=== PATIENT | female | born 1985 | race Caucasian/White ===

== ENCOUNTER 2016-03-10 16:28 | Emergency (ER) | payer MEDICAID ==
[2016-03-10] MEDS ORDERED: 0.9 % SODIUM CHLORIDE 1,000 ML BAG IV ONE (17:56)
[2016-03-10] MEDS ORDERED: ONDANSETRON HCL IV 4 MG/2 ML VIAL IVP ONE (17:57)
[2016-03-10 18:21] LABS: URINE APPEARANCE SL CLOUDY; URINE BILIRUBIN NEGATIVE (NEGATIVE); URINE BLOOD NEGATIVE (NEGATIVE); URINE COLOR YELLOW; URINE KETONE 40 mg/dL (NEGATIVE); URINE LEUKOCYTE ESTERASE NEGATIVE (NEGATIVE); URINE NITRITE NEGATIVE (NEGATIVE); URINE PROTEIN NEGATIVE (NEGATIVE); URINE UROBILINOGEN 0.2 E.U./dL (0.20 - 1.00)
[2016-03-10 18:23] LABS: URINE GLUCOSE (UA) >=1000 mg/dL (NEGATIVE)
[2016-03-10 18:25] LABS: HEMATOCRIT 39.8 % (35.0-47.0); HEMOGLOBIN 13.7 gm/dl (11.6-16.0); MEAN CELL VOLUME 88.2 fl (81-97); MEAN CORPUSCULAR HEMOGLOBIN 30.4 pg (27-33); MEAN CORPUSCULAR HGB CONC 34.4 g/dl (32-36); MEAN PLATELET VOLUME 10.6 fl (7.4-10.4); PLATELET COUNT 315 K/uL (130-400); RED BLOOD COUNT 4.51 M/uL (3.80-5.40); RED CELL DISTRIBUTION WIDTH 12.9 % (11.5-14.5); WHITE BLOOD COUNT W/O DIFF 15.6 K/uL (4.2-12.2)
[2016-03-10 18:34] LABS: ANION GAP 18.2 (7-16); BLOOD UREA NITROGEN 16 mg/dL (7-17); CARBON DIOXIDE 23.8 mmol/L (22-30); CREATININE 0.8 mg/dL (0.52-1.04); EST GLOMERULAR FILTRATION RATE > 60 ml/min; GLUCOSE,RANDOM 437 mg/dL (70-110)
[2016-03-10 18:39] LABS: ACETONE,SERUM POSITIVE (NEGATIVE)
--- NOTE | 2016-03-10 19:55 | Emergency Department Record ---
History of Present Illness - General Chief complaint: Hypergylcemia Stated complaint: DIABETIC AND SUGAR IS HIGH Time Seen by Provider: 03/10/16 17:15 Source: Patient Mode of Arrival: Ambulatory Limitations: No limitations - History of Present Illness Initial comments: pt ran out of her needles so she has a high blood sugar. she was given needles when she got here and injected her insulin prior to me going into the room Complaint: Generalized weakness Onset/Timin -: Days(s) Severity: Mild Improves with: Medication Associated Symptoms: Nausea/vomiting - Jorge A Coma Scale Eye Response: (4) Open spontaneously Motor Response: (6) Obeys commands Verbal Response: (5) Oriented [place] Total: 15 - Related Data Home Medications Medication Instructions Recorded Confirmed Last Taken Insulin Aspart [Novolog] 40 units SQ DAILY 09/21/13 03/10/16 03/10/16 Levothyroxine Sodium 100 mcg PO DAILY 09/21/13 03/10/16 03/10/16 Allergies Allergy/AdvReac Type Severity Reaction Status Date / Time ceftriaxone sodium Allergy HIVES Verified 03/10/16 16:45 [From Rocephin] fluconazole [From Diflucan] Allergy HIVES Verified 03/10/16 16:45 metronidazole [From Flagyl] Allergy HIVES Verified 03/10/16 16:45 Penicillins Allergy HIVES Verified 03/10/16 16:45 Travel Screening - Travel/Exposure Within Last 30 Days Have you traveled within the last 30 days?: No - Travel/Exposure Within Last Year Have you traveled outside the [place] in the last year?: No - Additonal Travel Details Have you been exposed to anyone with a communicable illness?: No - Travel Symptoms Symptom Screening: None Review of Systems Reviewed: No additional complaints except as noted below Constitutional: Reports: As per HPI. Denies: Chills, Fever, Malaise, Night sweats, Weakness, Weight change Eyes: Reports: As per HPI. Denies: Eye discharge, Eye pain, Photophobia, Vision change ENT: Reports: As per HPI. Denies: Congestion, Dental pain, Ear pain, Epistaxis , Hearing loss, Throat pain Respiratory: Reports: As per HPI. Denies: Cough, Dyspnea, Hemoptysis, Stridor, Wheezes Cardiovascular: Reports: As per HPI. Denies: Arrhythmia, Chest pain, Dyspnea on exertion, Edema, Murmurs, Orthopnea, Palpitations, Paroxysmal nocturnal dyspnea, Rheumatic Fever, Syncope Endocrine: Reports: As per HPI. Denies: Fatigue, Heat or cold intolerance, Polydipsia, Polyuria Gastrointestinal: Reports: As per HPI. Denies: Abdominal pain, Constipation, Diarrhea, Hematemesis, Hematochezia, Melena, Nausea, Vomiting Genitourinary: Reports: As per HPI. Denies: Abnormal menses, Discharge, Dyspareunia, Dysuria, Frequency, Hematuria, Incontinence, Retention, Urgency Musculoskeletal: Reports: As per HPI. Denies: Arthralgia, Back pain, Gout, Joint swelling, Myalgia, Neck pain Skin: Reports: As per HPI. Denies: Bruising, Change in color, Change in hair/ nails, Lesions, Pruritus, Rash Neurological: Reports: As per HPI. Denies: Abnormal gait, Confusion, Headache, Numbness, Paresthesias, Seizure, Tingling, Tremors, Vertigo, Weakness Psychiatric: Reports: As per HPI. Denies: Anxiety, Auditory hallucinations, Depression, Homicidal thoughts, Suicidal thoughts, Visual hallucinations Hematological/Lymphatic: Reports: As per HPI. Denies: Anemia, Blood Clots, Easy bleeding, Easy bruising, Swollen glands Past Medical History - SOCIAL HISTORY Smoking Status: Current every day smoker Alcohol Use: None Drug Use: None - RESPIRATORY Hx Respiratory Disorders: Yes Hx Asthma: Yes - CARDIOVASCULAR Hx Cardio Disorders: Yes Hx Hypotension: Yes - NEURO Hx Neuro Disorders: Yes Hx Headaches: Yes (hx of migraines) - GI Hx GI Disorders: No - Hx Genitourinary Disorders: No - ENDOCRINE Hx Endocrine Disorders: Yes Hx Diabetes: Yes Hx Thyroid Disease: Yes - MUSCULOSKELETAL Hx Musculoskeletal Disorders: No - PSYCH Hx Psych Problems: No - HEMATOLOGY/ONCOLOGY Hx Hematology/Oncology Disorders: No Family Medical History Any Significant Family History?: Yes Hx Cancer: Grandparents Hx Liver Disease: Mother, Brother/Sister Hx Resp Disorders: Father Physical Exam - General General Appearance: Alert, Oriented x3, Cooperative, Mild distress - Head Head exam: Normal inspection - Eye Eye exam: Normal appearance, PERRL, EOMI Pupils: Normal accommodation - ENT ENT exam: Normal exam, Mucous membranes moist, Normal external ear exam, Normal orophraynx Ear exam: Normal external inspection. negative: External canal tenderness Nasal Exam: Normal inspection. negative: Discharge, Sinus tenderness Mouth exam: Normal external inspection, Tongue normal Teeth exam: Normal inspection. negative: Dental caries Throat exam: Normal inspection. negative: Tonsillar erythema, Tonsillar exudate - Neck Neck exam: Normal inspection, Full ROM. negative: Tenderness - Respiratory Respiratory exam: Normal lung sounds bilaterally. negative: Respiratory distress - Cardiovascular Cardiovascular Exam: Regular rate, Normal rhythm, Normal heart sounds - GI/Abdominal GI/Abdominal exam: Soft, Normal bowel sounds. negative: Tenderness - Rectal Rectal exam: Deferred - exam: Deferred - Extremities Extremities exam: Normal inspection, Full ROM, Normal capillary refill. negative: Tenderness - Back Back exam: Reports: Normal inspection, Full ROM. Denies: Muscle spasm, Rash noted, Tenderness - Neurological Neurological exam: Alert, CN II-XII intact, Normal gait, Oriented X3 - Psychiatric Psychiatric exam: Normal affect, Normal mood - Skin Skin exam: Dry, Intact, Normal color, Warm Course Vital Signs 03/10/16 03/10/16 03/10/16 16:47 17:05 17:15 Temperature 98 F Pulse Rate 67 Pulse Rate [ 65 56 L Pulse Ox Probe] Respiratory 20 16 16 Rate Blood Pressure 112/63 Blood Pressure 120/58 113/69 [Left Arm] Pulse Ox 97 98 98 03/10/16 03/10/16 03/10/16 17:25 17:35 17:46 Temperature Pulse Rate Pulse Rate [ 53 L 54 L 81 Pulse Ox Probe] Respiratory 16 16 20 Rate Blood Pressure Blood Pressure 112/61 109/64 100/54 [Left Arm] Pulse Ox 98 98 98 03/10/16 03/10/16 18:00 18:10 Temperature Pulse Rate Pulse Rate [ 66 90 Pulse Ox Probe] Respiratory 16 16 Rate Blood Pressure Blood Pressure 109/60 117/66 [Left Arm] Pulse Ox 98 98 - Reevaluation(s) Reevaluation #1: 03/10/16 19:54 pts bs came down with the insulin that she gave herself and the iv fluids and the insulin pump she has Reevaluation #2: 03/10/16 19:58 pt states she does not want to be admitted and feels much better. she is willing to stay to finish her 2nd ltr of fluid and then will leave Medical Decision Making - Lab Data Result diagrams: 03/10/16 18:17 03/10/16 18:17 Lab Results 0103/10/16 03/10/16 Range/Units 16:45 18:17 18:17 WBC 15.6 H (4.2-12.2) K/uL RBC 4.51 (3.80-5.40) M/uL Hgb 13.7 (11.6-16.0) gm/dl Hct 39.8 (35.0-47.0) % MCV 88.2 (81-97) fl MCH 30.4 (27-33) pg MCHC 34.4 (32-36) g/dl RDW 12.9 (11.5-14.5) % Plt Count 315 (130-400) K/uL MPV 10.6 H (7.4-10.4) fl Neutrophils % 82.0 H (47-80) % Band Neutrophils % 0.0 (0-5) % Lymphocytes % 12.0 L (16-45) % Monocytes % 6.0 (0-9) % Eosinophils % 0.0 (0-6) % Basophils % 0.0 (0-6) % VBG pH (7.32-7.41) Sodium (136-145) mmol/L Potassium (3.5-5.1) mmol/L Chloride (98-107) mmol/L Carbon Dioxide (22-30) mmol/L Anion Gap (7-16) BUN (7-17) mg/dL Creatinine (0.52-1.04) mg/dL Estimated GFR ml/min POC Glucose 531 H* (70-110) mg/dL Random Glucose (70-110) mg/dL Calcium (8.5-10.1) mg/dL Urine Color Yellow Urine Appearance Sl cloudy Urine pH 5.5 (5.0-8.0) Ur Specific [place] 1.010 (1.002-1.030) Urine Protein Negative (NEGATIVE) Urine Glucose (UA) >=1000 mg/dl H (NEGATIVE) Urine Ketones 40 mg/dl H (NEGATIVE) Urine Blood Negative (NEGATIVE) Urine Nitrite Negative (NEGATIVE) Urine Bilirubin Negative (NEGATIVE) Urine Urobilinogen 0.2 (0.20 - 1.00) E.U./dL Ur Leukocyte Esterase Negative (NEGATIVE) Acetone, Qual (NEGATIVE) 03/10/16 03/10/16 Range/Units 18:17 19:20 WBC (4.2-12.2) K/uL RBC (3.80-5.40) M/uL Hgb (11.6-16.0) gm/dl Hct (35.0-47.0) % MCV (81-97) fl MCH (27-33) pg MCHC (32-36) g/dl RDW (11.5-14.5) % Plt Count (130-400) K/uL MPV (7.4-10.4) fl Neutrophils % (47-80) % Band Neutrophils % (0-5) % Lymphocytes % (16-45) % Monocytes % (0-9) % Eosinophils % (0-6) % Basophils % (0-6) % VBG pH 7.38 (7.32-7.41) Sodium 136 (136-145) mmol/L Potassium 3.9 (3.5-5.1) mmol/L Chloride 94 L (98-107) mmol/L Carbon Dioxide 23.8 (22-30) mmol/L Anion Gap 18.2 H (7-16) BUN 16 (7-17) mg/dL Creatinine 0.8 (0.52-1.04) mg/dL Estimated GFR > 60 ml/min POC Glucose 228 H (70-110) mg/dL Random Glucose 437 H (70-110) mg/dL Calcium 9.4 (8.5-10.1) mg/dL Urine Color Urine Appearance Urine pH (5.0-8.0) Ur Specific [place] (1.002-1.030) Urine Protein (NEGATIVE) Urine Glucose (UA) (NEGATIVE) Urine Ketones (NEGATIVE) Urine Blood (NEGATIVE) Urine Nitrite (NEGATIVE) Urine Bilirubin (NEGATIVE) Urine Urobilinogen (0.20 - 1.00) E.U./dL Ur Leukocyte Esterase (NEGATIVE) Acetone, Qual Positive (NEGATIVE) Disposition Disposition: Discharge Clinical Impression: Hyperglycemia due to type 1 diabetes mellitus, Urine ketone, Ketonemia Disposition: Home, Self-Care Condition: (1) Good Instructions: Diabetic Hyperglycemia (ED), Ketones, Urine (GEN) Additional Instructions: monitor glucose closely. follow up tomorrow with family doctor. return sooner if worse Forms: Patient Portal Access
== END 2016-03-10 20:28 | disposition home or self-care (01) ==
LOC: ER 16:28
DX: E10.10 Type 1 diabetes mellitus with ketoacidosis without coma (principal); Z79.4 Long term (current) use of insulin; R11.2 Nausea with vomiting, unspecified; I10 Essential (primary) hypertension; F17.200 Nicotine dependence, unspecified, uncomplicated
CPT/HCPCS: 99284 ×2; 96374; 82800; 80048; 36416; 82009; 82948; 81003; 85027; J2405; J7030

== ENCOUNTER 2019-04-06 10:10 | Emergency (ER) | payer MEDICAID ==
[2019-04-06] MEDS ORDERED: ONDANSETRON HCL IV 4 MG/2 ML VIAL IVP ONE ×2 (10:18→13:27)
[2019-04-06] MEDS ORDERED: 0.9 % SODIUM CHLORIDE 1,000 ML BAG IV ONE ×3 (10:18→11:49)
[2019-04-06] MEDS ORDERED: ACETAMINOPHEN 500 MG TABLET PO ONE (10:19)
[2019-04-06] MEDS ORDERED: ACETAMINOPHEN 1,000 MG/100 ML BTL IVPB ONE (10:20)
--- NOTE | 2019-04-06 10:22 | Emergency Department Record ---
History of Present Illness - General Chief complaint: Flu Like Symptoms Stated complaint: FLU LIKE SYMPTOM/DEHYDRATION Time Seen by Provider: 04/06/19 10:11 Source: Patient Mode of Arrival: Ambulatory Limitations: No limitations - History of Present Illness Initial comments: 33 yo female presents with cough, congestion, body aches, fevers and chills sin ce Wednesday. She developed nausea and vomiting last night. She states she is a diabetic and feels dehydrated. No diarrhea. She states her last blood glucose was 80. No abdominal pain. No rash. Her child and significant other were diagnosed with the flu this week. She did not have a flu shot this year. She is a smoker. She has asthma but does not feel like she is wheezing. MD Complaint: Generalized weakness -: Days(s) (5) Location: Other Quality: Aching Consistency: Constant Improves with: None Worsens with: Other (coughing) Context: Recent illness Associated Symptoms: Other - [place] Coma Scale Eye Response: (4) Open spontaneously Motor Response: (6) Obeys commands Verbal Response: (5) Oriented Jorge A Total: 15 - Related Data Previous Rx's Medication Instructions Recorded Levofloxacin [Levaquin] 750 mg PO DAILY #7 tab 04/06/19 Ondansetron [Zofran Odt] 4 mg PO Q8H #20 tab.rapdis 04/06/19 Allergies Allergy/AdvReac Type Severity Reaction Status Date / Time ceftriaxone sodium Allergy HIVES Unverified 12/26/18 16:47 [From Rocephin] fluconazole [From Diflucan] Allergy HIVES Unverified 12/26/18 16:47 metronidazole [From Flagyl] Allergy HIVES Unverified 12/26/18 16:47 nicotine [From Nicoderm CQ] Allergy Unverified 12/26/18 16:47 Penicillins Allergy HIVES Unverified 12/26/18 16:47 Review of Systems Constitutional: Reports: Chills, Fever, Malaise, Weakness Eyes: Denies: Eye discharge ENT: Reports: Congestion, Throat pain. Denies: Ear pain Respiratory: Reports: Cough. Denies: Dyspnea Cardiovascular: Denies: Chest pain, Edema, Palpitations, Syncope Endocrine: Reports: Fatigue Gastrointestinal: Reports: Nausea, Vomiting. Denies: Diarrhea Genitourinary: Denies: Dysuria Musculoskeletal: Reports: Myalgia. Denies: Arthralgia, Back pain, Neck pain Skin: Denies: Bruising, Change in color, Rash Neurological: Reports: Headache. Denies: Numbness, Weakness Psychiatric: Denies: Anxiety Hematological/Lymphatic: Denies: Easy bleeding, Easy bruising Past Medical History - SOCIAL HISTORY Smoking Status: Current every day smoker Drug Use: None - RESPIRATORY Hx Respiratory Disorders: Yes Hx Asthma: Yes - CARDIOVASCULAR Hx Cardio Disorders: Yes Hx Hypotension: Yes - NEURO Hx Neuro Disorders: Yes Hx Headaches: Yes (hx of migraines) - GI Hx GI Disorders: No - Hx Genitourinary Disorders: No - ENDOCRINE Hx Endocrine Disorders: Yes Hx Diabetes: Yes Hx Thyroid Disease: Yes - MUSCULOSKELETAL Hx Musculoskeletal Disorders: No - PSYCH Hx Psych Problems: No - HEMATOLOGY/ONCOLOGY Hx Hematology/Oncology Disorders: No Family Medical History Hx Cancer: Grandparents Hx Liver Disease: Mother, Brother/Sister Hx Resp Disorders: Father Physical Exam - General General Appearance: Alert, Oriented x3, Cooperative, No acute distress Limitations: No limitations - Head Head exam: Atraumatic, Normal inspection - Eye Eye exam: Normal appearance, PERRL. negative: Conjunctival injection, Scleral icterus - ENT ENT exam: Normal exam Ear exam: Normal external inspection Nasal Exam: Normal inspection Mouth exam: Normal external inspection Teeth exam: Normal inspection Throat exam: Normal inspection - Neck Neck exam: Normal inspection. negative: Lymphadenopathy, Tenderness - Respiratory Respiratory exam: Rhonchi (few scattered otherwise clear). negative: Normal lung sounds bilaterally, Accessory muscle use, Decreased breath sounds, Prolonged expiratory, Respiratory distress, Stridor, Wheezes - Cardiovascular Cardiovascular Exam: Regular rate, Normal rhythm, Normal heart sounds - GI/Abdominal GI/Abdominal exam: Soft. negative: Tenderness - Rectal Rectal exam: Deferred - exam: Deferred - Extremities Extremities exam: Normal inspection. negative: Calf tenderness, Pedal edema, Tenderness - Back Back exam: Denies: CVA tenderness (R), CVA tenderness (L) - Neurological Neurological exam: Alert, Oriented X3 - Psychiatric Psychiatric exam: Normal affect, Normal mood. negative: Agitated, Anxious - Skin Skin exam: Dry, Intact, Normal color, Warm Course - Reevaluation(s) Reevaluation #1: 04/06/19 11:55 The labs were reviewed with the patient Her Influenza are negative The WBC count is elevated at 24 The CXR demonstrates a round pneumonia vs mas with CT recommended, hyperinflation, interstitial fibrosis A copy was provided to the patient with the recommendation for CT. She is in agreement. Levaquin ordered for her likely pneumonia. (allergy to rocephin) 04/06/19 12:35 The patient continues to do well feeling much improved after the IVF, fever reduction, and antibiotics. No hypoxia in the ED No vomiting in the ED. Waiting for the CT report. 04/06/19 13:[address] was reviewed. Multiple rounded densities in the Right middle and upper lobe. Likely inflammatory. Recommend follow up for resolution 04/06/19 13:18 We discussed the results of the tests and questions were answered. The patient is doing well and is comfortable with DC. We discussed at length reasons to immediately return to the ED as well as close follow to ensure resolution of the radiology findings. The patient will call the PCP for close follow up of this ED visit to review this visit and the tests performed DC vitals were reviewed. The patient was given a copy of the radiology reports to review with their [facility] doctor for follow up She is to return in 24-48 hours to recheck her CBC as well. Medical Decision Making - Lab Data Result diagrams: 04/06/19 10:25 04/06/19 10:25 Disposition Disposition: Discharge Clinical Impression: Pneumonia Disposition: Home, Self-Care Condition: (1) Good Instructions: Pneumonia (ED) Additional Instructions: Review this ER visit and the tests performed with your family doctor including the XRay and CT scan of your chest Call your doctor for the next available follow up appointment for a recheck in the next week Return tomorrow to the ED for a recheck to recheck your CBC (Blood counts) Return to the ER for a recheck immediately if worse, any new concerns or questions Take the prescriptions provided as directed You will need follow up XRs over the next few weeks to ensure the pneumonia resolves. Call your doctor to arrange this. Prescriptions: Levofloxacin [Levaquin] 750 mg PO DAILY #7 tab Ondansetron [Zofran Odt] 4 mg PO Q8H #20 tab.rapdis Forms: Patient Portal Access Time of Disposition: 13:19 Quality - Quality Measures Quality Measures: N/A - Blood Pressure Screening Does Patient Have Any of the Following: No Blood Pressure Classification: Normal BP Reading Systolic Measurement: 115 Diastolic Measurement: 68 Screening for High Blood Pressure: < Normal BP, F/U Not Required > [G8758]
[2019-04-06 10:36] LABS: ABSOLUTE NEUTROPHIL COUNT 20.38; HEMATOCRIT 39.3 % (35.0-47.0); MEAN CELL VOLUME 89.7 fl (81-97); MEAN CORPUSCULAR HEMOGLOBIN 29.7 pg (27-33); MEAN CORPUSCULAR HGB CONC 33.1 g/dl (32-36); MEAN PLATELET VOLUME 9.7 fl (7.4-10.4); PLATELET COUNT 384 K/uL (130-400); RED BLOOD COUNT 4.38 M/uL (3.80-5.40); RED CELL DISTRIBUTION WIDTH 13.7 % (11.5-14.5)
[2019-04-06 10:39] LABS: WHITE BLOOD COUNT W/O DIFF 24.2 K/uL (4.2-12.2)
[2019-04-06 10:42] LABS: CREATININE 0.9 mg/dL (0.5-0.9); EST GLOMERULAR FILTRATION RATE > 60 mL/min
[2019-04-06 10:45] LABS: GLUCOSE,RANDOM 111 mg/dL (74-109)
[2019-04-06 10:46] LABS: BLOOD UREA NITROGEN 9 mg/dL (6-20)
[2019-04-06 10:47] LABS: PLATELET ESTIMATE NORMAL (NORMAL)
[2019-04-06 10:49] LABS: INFLUENZA A NEGATIVE (NEGATIVE); INFLUENZA B NEGATIVE (NEGATIVE)
--- NOTE | 2019-04-06 11:46 | RADIOLOGY REPORT ---
EXAMINATION: Two View Chest Radiographs EXAM DATE: 04/06/2019 11:25 AM TECHNIQUE: Frontal and lateral views INDICATION: cough, fever COMPARISON: None ENCOUNTER: Not applicable FINDINGS: The heart, mediastinum, and pulmonary vasculature are normal. There is hyperinflation of the lung fie lds. A right upper lobe mass versus round pneumonia is identified in the right upper lobe measuring a pproximately 4.4 x 4.2 x 3.8 cm. There is a question of smaller, more vague nodules more inferiorly. Diffuse increase interstitial markings are noted suggesting fibrotic changes. Right middle lobe fibro sis and/or interstitial infiltrate is noted. A rounded density is also noted projecting over the righ t hepatic dome measuring approximately 3.0 cm. This is not definitely seen on the lateral view. Chest CT is recommended for further evaluation and confirmation of the findings. No lung other consolidati on or pleural effusions are present. The bony structures appear intact. IMPRESSION: Right upper lobe mass or round pneumonia. Right middle lobe infiltrate. Questionable vague additional right pulmonary parenchymal nodules, as described above. Hyperinflation with findings suggesting interstitial fibrosis. Dictated by: Savanah Garcia MD on 04/06/2019 11:41 AM. .
[2019-04-06] MEDS ORDERED: LEVOFLOXACIN/D5W 750 MG/150 ML BAG IVPB ONE (11:51)
--- NOTE | 2019-04-06 13:14 | CT SCAN REPORT ---
EXAMINATION: CT Chest with IV Contrast EXAM DATE: 04/06/2019 12:37 PM TECHNIQUE: Standard protocol CT imaging of the chest with intravenous contrast was performed. Coronal and sagittal images were reconstructed. IV Contrast: The amount and type of contrast are recorded in the medical record. INDICATION: RUL mass vs pneumonia COMPARISON: CXR 04/06/2019 ENCOUNTER: Not applicable CHEST FINDINGS: Base of Neck & Axillae: There is no adenopathy. Mediastinum & [place]: 15 mm right hilar lymph node likely reactive. Cardiovascular: The heart has a normal size. There is no pericardial effusion. The thoracic aorta an d main pulmonary artery have a normal caliber. Tracheobronchial Structures: There is no bronchial wall thickening or bronchiectasis. Lung Parenchyma: Multiple rounded opacities right upper, middle and lower lobes and lingula likely in flammatory. Follow-up study until resolution. Pleural Space: There are no pleural effusions. There is no pneumothorax. Upper Abdomen: Included portions of the upper abdomen are unremarkable. Chest Wall & Musculoskeletal: No suspicious bone lesions. IMPRESSION: 1. Multiple rounded opacities right upper middle and lower lobes and lingula likely inflammatory. Fol low-up study until resolution as clinically directed 2. 15 mm right hilar lymph node likely reactive NOTE: There is a follow-up recommendation in this report. Dictated by: Bob Yoder MD on 04/06/2019 1:04 PM. .
== END 2019-04-06 14:08 | disposition home or self-care (01) ==
LOC: ER 10:10
DX: J18.9 Pneumonia, unspecified organism (principal); R53.1 Weakness; R11.2 Nausea with vomiting, unspecified; E11.9 Type 2 diabetes mellitus without complications; F17.210 Nicotine dependence, cigarettes, uncomplicated
CPT/HCPCS: 71046; 71260; 80048; 85027; 87400; 96361; 96365; 96366; 96375; 96376; 99284; J1956; J2405; J7030

== ENCOUNTER 2019-04-07 09:49 | Emergency (ER) | payer MEDICAID ==
--- NOTE | 2019-04-07 10:19 | Emergency Department Record ---
History of Present Illness - General Chief Complaint: Recheck - Other Stated Complaint: RECHECK/PNEUMONIA Time Seen by Provider: 04/07/19 10:05 Source: Patient Mode of arrival: Ambulatory Limitations: No limitations - History of Present Illness Initial Comments: pt here for repeat cbc. she was here yesterday and was dxd w pneumonia. she had wbcs at 23. she is feeling a little better. she was told to return today for repeat lab Complaint: Other Onset/Timin -: Days(s) Initial Visit For: Other Returns Today for: Other Symptoms Since Prior Visit: Improved Associated Symptoms: None Treatments Prior to Arrival: Given antibiotics on initial visit - Related Data Home Medications Medication Instructions Recorded Confirmed Last Taken Insulin Lispro [Admelog] 1 unit SQ DAILY 04/07/19 04/07/19 Unknown Previous Rx's Medication Instructions Recorded Levofloxacin [Levaquin] 750 mg PO DAILY #7 tab 04/06/19 Ondansetron [Zofran Odt] 4 mg PO Q8H #20 tab.rapdis 04/06/19 Allergies Allergy/AdvReac Type Severity Reaction Status Date / Time ceftriaxone sodium Allergy HIVES Unverified 12/26/18 16:47 [From Rocephin] fluconazole [From Diflucan] Allergy HIVES Unverified 12/26/18 16:47 metronidazole [From Flagyl] Allergy HIVES Unverified 12/26/18 16:47 nicotine [From Nicoderm CQ] Allergy Unverified 12/26/18 16:47 Penicillins Allergy HIVES Unverified 12/26/18 16:47 Travel/Exposure Screening - Travel/Exposure Within Last 30 Days Have you traveled within the last 30 days?: No - Additonal Travel/Exposure Details Have you been exposed to anyone with a communicable illness?: No Review of Systems Constitutional: Reports: Chills, Fever, Malaise. Denies: Night sweats, Weakness, Weight change Eyes: Denies: Eye discharge, Eye pain, Photophobia, Vision change ENT: Reports: Congestion. Denies: Dental pain, Ear pain, Epistaxis, Hearing loss Respiratory: Reports: Cough, Dyspnea. Denies: Hemoptysis, Stridor, Wheezes Cardiovascular: Reports: Dyspnea on exertion. Denies: Arrhythmia, Chest pain, Edema, Murmurs, Orthopnea, Palpitations, Rheumatic Fever Endocrine: Reports: Fatigue. Denies: Heat or cold intolerance, Polydipsia, Polyuria Gastrointestinal: Denies: Abdominal pain, Constipation, Diarrhea, Hematochezia Genitourinary: Denies: Discharge, Dysuria, Hematuria, Incontinence, Retention, Urgency Musculoskeletal: Reports: Myalgia. Denies: Arthralgia, Back pain, Gout, Joint swelling, Neck pain Skin: Denies: Bruising, Change in color, Pruritus, Rash Neurological: Denies: Abnormal gait, Confusion, Headache, Paresthesias, Seizure Psychiatric: Denies: Anxiety Hematological/Lymphatic: Denies: Anemia, Blood Clots, Easy bleeding, Easy bruising, Swollen glands Past Medical History - SOCIAL HISTORY Smoking Status: Current every day smoker - RESPIRATORY Hx Respiratory Disorders: Yes Hx Asthma: Yes - CARDIOVASCULAR Hx Cardio Disorders: Yes Hx Hypotension: Yes - NEURO Hx Neuro Disorders: Yes Hx Headaches: Yes (hx of migraines) - GI Hx GI Disorders: No - Hx Genitourinary Disorders: No - ENDOCRINE Hx Endocrine Disorders: Yes Hx Diabetes: Yes Hx Thyroid Disease: Yes - MUSCULOSKELETAL Hx Musculoskeletal Disorders: No - PSYCH Hx Psych Problems: No - HEMATOLOGY/ONCOLOGY Hx Hematology/Oncology Disorders: No Family Medical History Any Significant Family History?: Yes Hx Cancer: Grandparents Hx Liver Disease: Mother, Brother/Sister Hx Resp Disorders: Father Physical Exam - General General Appearance: Alert, Oriented x3, Cooperative, No acute distress - Head Head exam: Normal inspection - Eye Eye exam: Normal appearance, PERRL, EOMI Pupils: Normal accommodation - ENT ENT exam: Normal exam, Mucous membranes moist, Normal external ear exam, Normal orophraynx Ear exam: Normal external inspection. negative: External canal tenderness Nasal Exam: Normal inspection. negative: Discharge, Sinus tenderness Mouth exam: Normal external inspection, Tongue normal Teeth exam: Normal inspection. negative: Dental caries Throat exam: Normal inspection. negative: Tonsillar erythema, Tonsillar exudate - Neck Neck exam: Normal inspection, Full ROM. negative: Tenderness - Respiratory Respiratory exam: Rales. negative: Respiratory distress - Cardiovascular Cardiovascular Exam: Normal rhythm, Normal heart sounds, Bradycardia - GI/Abdominal GI/Abdominal exam: Soft, Normal bowel sounds. negative: Tenderness - Rectal Rectal exam: Deferred - exam: Deferred - Extremities Extremities exam: Normal inspection, Full ROM, Normal capillary refill. negative: Tenderness - Back Back exam: Reports: Normal inspection, Full ROM. Denies: Muscle spasm, Rash noted, Tenderness - Neurological Neurological exam: Alert, Normal gait, Oriented X3, Reflexes normal - Psychiatric Psychiatric exam: Normal affect, Normal mood - Skin Skin exam: Dry, Intact, Normal color, Warm Course Vital Signs 04/07/19 09:51 Temperature 98.5 F Pulse Rate 59 L Respiratory 18 Rate Blood Pressure 126/73 Pulse Ox 98 - Reevaluation(s) Reevaluation #1: 04/07/19 10:41 pts wbcs down to 20. Medical Decision Making - Lab Data Result diagrams: 04/07/19 10:25 Disposition Disposition: Discharge Clinical Impression: Pneumonia Qualifiers: Pneumonia type: due to unspecified organism Laterality: right Lung location: unspecified part of lung Qualified Code(s): J18.9 - Pneumonia, unspecified organism Disposition: Home, Self-Care Condition: (1) Good Instructions: Bacterial Pneumonia (ED) Additional Instructions: follow up on wednesday with family doctor. return sooner if worse. continue levaquin. rest Forms: Patient Portal Access Quality - Quality Measures Quality Measures: N/A - Blood Pressure Screening Does Patient Have Any of the Following: No Blood Pressure Classification: Pre-Hypertensive BP Reading Systolic Measurement: 126 Diastolic Measurement: 73 Screening for High Blood Pressure: < Pre-Hypertensive BP, F/U Documented > [[id number]] Pre-Hypertensive Follow-up Interventions: Follow-up with rescreen every year.
[2019-04-07 10:34] LABS: ABSOLUTE NEUTROPHIL COUNT 17.19; HEMATOCRIT 33.4 % (35.0-47.0); HEMOGLOBIN 10.6 gm/dl (11.6-16.0); MEAN CELL VOLUME 90.5 fl (81-97); MEAN CORPUSCULAR HEMOGLOBIN 28.7 pg (27-33); MEAN CORPUSCULAR HGB CONC 31.7 g/dl (32-36); MEAN PLATELET VOLUME 9.6 fl (7.4-10.4); PLATELET COUNT 317 K/uL (130-400); RED BLOOD COUNT 3.69 M/uL (3.80-5.40); RED CELL DISTRIBUTION WIDTH 13.7 % (11.5-14.5)
[2019-04-07 10:39] LABS: WHITE BLOOD COUNT W/O DIFF 20.6 K/uL (4.2-12.2)
[2019-04-07 10:43] LABS: PLATELET ESTIMATE NORMAL (NORMAL)
== END 2019-04-07 10:58 | disposition home or self-care (01) ==
LOC: ER 09:49
DX: J18.9 Pneumonia, unspecified organism (principal); E11.9 Type 2 diabetes mellitus without complications; Z79.4 Long term (current) use of insulin
CPT/HCPCS: 85027; 99283